=== PATIENT | female | born 1950 | race Caucasian/White ===

== ENCOUNTER 2018-07-08 15:00 | Emergency (ER) | payer MEDICARE ==
[2018-07-08 15:41] LABS: BASOPHILS % (AUTO) 0.4 % (0.0-5.0); HEMATOCRIT 44.8 % (36-48); LYMPHOCYTES % (AUTO) 30.6 % (21.0-51.0); MEAN CORPUSCULAR HEMOGLOBIN 30.1 pg (27.0-33.0); MEAN CORPUSCULAR HGB CONC 33.7 g/dL (32.0-36.0); MEAN CORPUSCULAR VOLUME 89.2 fL (79-99); MONOCYTES % (AUTO) 5.5 % (3.0-13.0); NEUTROPHILS % (AUTO) 62.5 % (40.0-77.0); NUCLEATED RED BLOOD CELLS 0.1 % (0.0-0.19); PLATELET COUNT (AUTO) 253 K/uL (130-400); RED BLOOD CELL COUNT(AUTO) 5.02 MIL/uL (4.00-5.50); RED CELL DISTRIBUTION WIDTH 12.8 % (11.0-15.5); WHITE BLOOD COUNT (AUTO) 4.7 K/uL (4.8-10.8)
[2018-07-08 15:51] LABS: CREATININE 1.1 mg/dL (0.5-1.5); POTASSIUM 3.6 mmol/L (3.5-5.1)
[2018-07-08 15:53] LABS: INR 1.05 (0.85-1.15); PARTIAL THROMBOPLASTIN TIME 28.9 SEC (26.3-35.5)
[2018-07-08 16:03] LABS: B-TYPE NATRIURETIC PEPTIDE 100 pg/mL (0-100)
[2018-07-08 16:14] LABS: ALBUMIN 4.1 g/dL (3.5-5.0); BILIRUBIN,TOTAL 0.6 mg/dL (0.2-1.0); TOTAL PROTEIN, SERUM 7.2 g/dL (6.0-8.3)
== END 2018-07-08 16:28 | disposition home or self-care (01) ==
LOC: EDH 15:00
DX: I48.92 Unspecified atrial flutter (principal); R00.2 Palpitations; F41.9 Anxiety disorder, unspecified; Z86.73 Personal history of transient ischemic attack (TIA), and cerebral infarction without residual deficits; Z88.0 Allergy status to penicillin; Z98.890 Other specified postprocedural states
CPT/HCPCS: 36415; 71045; 80053; 82550; 83874; 83880; 84484; 85025; 85610; 85730; 93005; 94761

== ENCOUNTER 2018-10-13 14:45 | Inpatient (IN) | payer MEDICARE, OTHER ==
[~2018-10-13] VITALS: Ht 167.6 cm; Wt 61.1 kg
[2018-10-13 14:50] VITALS: BP 111/61
[2018-10-13 15:05] LABS: BASOPHILS % (AUTO) 0.3 % (0.0-5.0); EOSINOPHILS % (AUTO) 0.9 % (0.0-8.0); HEMATOCRIT 43.6 % (36-48); MEAN CORPUSCULAR HEMOGLOBIN 28.9 pg (27.0-33.0); MEAN CORPUSCULAR HGB CONC 33.1 g/dL (32.0-36.0); MEAN CORPUSCULAR VOLUME 87.4 fL (79-99); MONOCYTES % (AUTO) 8.4 % (3.0-13.0); NEUTROPHILS % (AUTO) 63.4 % (40.0-77.0); PLATELET COUNT (AUTO) 265 K/uL (130-400); RED BLOOD CELL COUNT(AUTO) 4.98 MIL/uL (4.00-5.50); RED CELL DISTRIBUTION WIDTH 14.6 % (11.0-15.5); WHITE BLOOD COUNT (AUTO) 6.4 K/uL (4.8-10.8)
[2018-10-13 15:22] LABS: APPEARANCE,URINE Clear (CLEAR); BILIRUBIN,URINE Negative (NEGATIVE); COLOR,URINE Yellow (YELLOW); GLUCOSE, URINE (UA) Negative (NEGATIVE); KETONES,URINE Negative (NEGATIVE); LEUKOCYTE ESTERASE ,URINE Negative (NEGATIVE); NITRATE,URINE Negative (NEGATIVE); OCCULT BLOOD,URINE Negative (NEGATIVE); PROTEIN,URINE Negative (NEGATIVE)
[2018-10-13 15:23] LABS: INR 1.02 (0.85-1.15); PARTIAL THROMBOPLASTIN TIME 27.5 SEC (26.3-35.5); PROTHROMBIN TIME 10.7 SEC (9.6-11.6)
[2018-10-13 15:28] LABS: CREATININE 0.9 mg/dL (0.5-1.5); POTASSIUM 3.8 mmol/L (3.5-5.1)
[2018-10-13] MEDS ORDERED: ATOR40TA71 PO (15:43)
[2018-10-13] MEDS ORDERED: APIX5TAB PO (15:43)
[2018-10-13] MEDS ORDERED: ATENOL PO (15:43)
[2018-10-16] VITALS (23 sets, daily range): BP systolic 109–133; BP diastolic 55–81
[2018-10-16] MEDS: CLINDAMYCIN 900 MG/D5% WATER 50 ML IV SCH ×4 (06:00→20:45)
[2018-10-16] MEDS ORDERED: LACTATED RINGERS 1000ML 1,000 ML IV ONE (06:44)
[2018-10-16] MEDS ORDERED: DEXAMETHASONE SOD PHOSPHATE 10MG/ML 1ML VIAL ONE ×2 (07:30→12:53)
[2018-10-16] MEDS ORDERED: LIDOCAINE PF 2% 5ML ABBOJECT ONE ×2 (07:30→12:52)
[2018-10-16] MEDS ORDERED: NEOSTIGMINE 5MG/5ML SYR IV ONE (07:31)
[2018-10-16] MEDS ORDERED: PROPOFOL 10 MG/ML 20ML VIAL IV ONE (07:31)
[2018-10-16] MEDS ORDERED: MIDAZOLAM HCL 1 MG/ML 2ML VIAL ONE (07:31)
[2018-10-16] MEDS ORDERED: GLYCOPYRROLATE 1 MG/5 ML SYRINGE ONE (07:31)
[2018-10-16] MEDS ORDERED: ROCURONIUM 10MG/1ML SYR 10 MG/ML ML ONE (07:31)
[2018-10-16] MEDS ORDERED: ONDANSETRON HCL 4 MG/2 ML VIAL ONE (07:31)
[2018-10-16] MEDS ORDERED: FENTANYL CITRATE PF 50 MCG/1 ML 2ML VIAL ONE ×2 (07:32→09:55)
[2018-10-16] MEDS ORDERED: EPHEDRINE SULFATE 50 MG/ML AMPULE ONE (07:32)
[2018-10-16] MEDS ORDERED: BUPIVACAINE/EPI/PF 0.25% 50 ML VIAL ONE (07:34)
[2018-10-16] MEDS ORDERED: CLINDAMYCIN PHOSPHATE 150 MG/ML 6ML VIAL ONE (07:34)
[2018-10-16] MEDS ORDERED: LIDOCAINE HCL 4% LTA SOL 4 ML VIAL ONE (07:35)
[2018-10-16] MEDS ORDERED: ROPIVACAINE 0.5% 5MG/ML 30ML IJ ONE (07:40)
[2018-10-16] MEDS ORDERED: THROMBIN-JMI 5000 UNIT/VIAL TP ONE ×2 (09:03→09:30)
[2018-10-16] MEDS ORDERED: BUPIVACAINE/EPI/PF 0.5% 30ML VIAL IJ ONE (09:27)
[2018-10-16] MEDS ORDERED: POTASSIUM CHLORIDE 20 MEQ ERTAB PO PRN (11:30)
[2018-10-16] MEDS: ACETAMINOPHEN EXTRA STRENGTH 500 MG TABLET PO SCH ×2 (11:30→20:44)
[2018-10-16] MEDS ORDERED: CALCIUM CARBONATE 500 MG TABLET PO PRN (11:30)
[2018-10-16] MEDS ORDERED: TEMAZEPAM 15 MG CAPSULE PO PRN (11:30)
[2018-10-16] MEDS ORDERED: DiphenhydrAMINE HCL 50 MG/ML VIAL IVP PRN (11:30)
[2018-10-16] MEDS ORDERED: KETOROLAC TROMETHAMINE 15MG/ML IV PRN (11:30)
[2018-10-16] MEDS ORDERED: POTASSIUM CHLORIDE 10% ELIXIR 20 MEQ/15 ML UDCUP PO PRN (11:30)
[2018-10-16] MEDS ORDERED: TRAMADOL HCL 50 MG TABLET PO PRN (11:30)
[2018-10-16] MEDS ORDERED: FERROUS FUMARATE 324 MG TABLET PO PRN (11:30)
[2018-10-16] MEDS ORDERED: OXYCODONE HCL 5 MG TAB PO PRN (11:30)
[2018-10-16] MEDS ORDERED: LIDOCAINE HCL-MPF 1% 2ML VIAL IVP PRN (11:30)
[2018-10-16] MEDS ORDERED: ONDANSETRON HCL 4 MG/2 ML VIAL IVP PRN (11:30)
[2018-10-16] MEDS ORDERED: POTASSIUM CHLORIDE 20MEQ/100ML 100 ML IV PRN (11:30)
[2018-10-16] MEDS ORDERED: MEPERIDINE-PF 25 MG/ML SYG ONE (12:03)
[2018-10-16] MEDS ORDERED: KETOROLAC TROMETHAMINE 30MG/ML ONE (12:23)
[2018-10-16] MEDS ORDERED: HYDROMORPHONE 1 MG/1 ML AMP ONE (12:58)
[2018-10-16] MEDS: SODIUM CHLORIDE 0.9% 1000ML 1,000 ML IV SCH (13:30)
[2018-10-16] MEDS ORDERED: NALOXONE HCL 0.4 MG/1 ML ML IVP PRN (14:15)
[2018-10-16] MEDS ORDERED: HYDROMORPHONE PCA 10 MG/50 ML 50 ML IV PRN (14:15)
[2018-10-16] MEDS ORDERED: CEFAZOLIN SODIUM 1 GM VIAL IVP SCH ×2 (16:30)
[2018-10-16] MEDS: APIXABAN 5 MG TABLET PO SCH (20:43)
[2018-10-16] MEDS: PREGABALIN 25 MG CAP PO SCH (20:43)
[2018-10-16] MEDS: CELECOXIB 200 MG CAP PO SCH (20:43)
[2018-10-16] MEDS: ATENOLOL 25 MG TABLET PO SCH (20:44)
[2018-10-16] MEDS: OXYCODONE HCL 5 MG TAB PO PRN (20:45)
[2018-10-16] MEDS: FAMOTIDINE 20MG TAB 20 MG TAB PO SCH (20:49)
[2018-10-17] VITALS (7 sets, daily range): BP systolic 84–122; BP diastolic 44–69
[2018-10-17] MEDS: SODIUM CHLORIDE 0.9% 1000ML 1,000 ML IV SCH ×2 (00:03→06:22)
[2018-10-17] MEDS: ACETAMINOPHEN EXTRA STRENGTH 500 MG TABLET PO SCH ×3 (03:38→19:58)
[2018-10-17 04:34] LABS: HEMATOCRIT 33.3 % (36-48); MEAN CORPUSCULAR HEMOGLOBIN 29.6 pg (27.0-33.0); MEAN CORPUSCULAR HGB CONC 33.7 g/dL (32.0-36.0); MEAN CORPUSCULAR VOLUME 87.9 fL (79-99); PLATELET COUNT (AUTO) 201 K/uL (130-400); RED BLOOD CELL COUNT(AUTO) 3.79 MIL/uL (4.00-5.50); RED CELL DISTRIBUTION WIDTH 15.1 % (11.0-15.5)
[2018-10-17 04:38] LABS: CREATININE 0.9 mg/dL (0.5-1.5); POTASSIUM 4.5 mmol/L (3.5-5.1)
[2018-10-17] MEDS: FAMOTIDINE 20MG TAB 20 MG TAB PO SCH ×2 (08:30→19:59)
[2018-10-17] MEDS: APIXABAN 5 MG TABLET PO SCH ×2 (08:30→19:58)
[2018-10-17] MEDS: ATORVASTATIN CALCIUM 40 MG TABLET PO SCH (08:30)
[2018-10-17] MEDS: POLYETHYLENE GLYCOL 3350 17 GM POWD.PACK PO SCH (08:30)
[2018-10-17] MEDS: CELECOXIB 200 MG CAP PO SCH ×2 (08:30→19:59)
[2018-10-17] MEDS: PREGABALIN 25 MG CAP PO SCH ×2 (08:30→19:59)
[2018-10-17] MEDS: ATENOLOL 25 MG TABLET PO SCH ×2 (09:00→19:54)
[2018-10-18] MEDS: ACETAMINOPHEN EXTRA STRENGTH 500 MG TABLET PO SCH ×2 (03:41→12:17)
[2018-10-18] MEDS: OXYCODONE HCL 5 MG TAB PO PRN (04:12)
[2018-10-18 04:18] VITALS: BP 100/47
[2018-10-18] MEDS: POLYETHYLENE GLYCOL 3350 17 GM POWD.PACK PO SCH (07:58)
[2018-10-18] MEDS: PREGABALIN 25 MG CAP PO SCH (07:58)
[2018-10-18] MEDS: FAMOTIDINE 20MG TAB 20 MG TAB PO SCH (07:59)
[2018-10-18] MEDS: CELECOXIB 200 MG CAP PO SCH (07:59)
[2018-10-18] MEDS: ATORVASTATIN CALCIUM 40 MG TABLET PO SCH (07:59)
[2018-10-18] MEDS: APIXABAN 5 MG TABLET PO SCH (07:59)
[2018-10-18] MEDS: ATENOLOL 25 MG TABLET PO SCH (08:01)
[2018-10-18] MEDS ORDERED: HYDR-4457 PO (10:42)
[2018-10-18 11:35] VITALS: BP 110/56
[2018-10-19] MEDS ORDERED: BISACODYL 10 MG SUPP.RECT RC PRN (11:30)
== END 2018-10-18 17:30 | disposition home health service (06) | DRG 470 ==
LOC: EDSTATUS 14:45 → DAHIP 10-16 06:35 → 4AH 10-16 12:23
PROVIDERS: ADMIT Orthopaedic Surgery; ATTEND Orthopaedic Surgery
PROC: 0SRD0J9 Replacement of Left Knee Joint with Synthetic Substitute, Cemented, Open Approach (ICD-10-PCS; principal; 2018-10-16 08:42)
DX: M17.12 Unilateral primary osteoarthritis, left knee (principal); M81.0 Age-related osteoporosis without current pathological fracture; E78.5 Hyperlipidemia, unspecified; I25.10 Atherosclerotic heart disease of native coronary artery without angina pectoris; G89.29 Other chronic pain; Z95.1 Presence of aortocoronary bypass graft; Z88.0 Allergy status to penicillin
CPT/HCPCS: 36415; 76000; 80048; 81003; 85025; 85027; 85610; 85730; 88305; 88311; G0378; J1100; J1170; J1885; J2001; J2175; J2250; J2405; J2704; J2710; J2795; J3010; J3490; J7030; J7120